=== PATIENT | female | born 1955 | race Native Hawaiian/Other Pacific Islander ===

== ENCOUNTER 2020-03-30 15:02 | Emergency (ER) | payer OTHER ==
[~2020-03-30] VITALS: Ht 170.2 cm; Wt 56.7 kg
[2020-03-30 16:05] LABS: PLATELET COUNT 148 K/uL (152-353)
[2020-03-30 16:15] LABS: POTASSIUM 3.4 mmol/L (3.6-5.2)
[2020-03-31 14:18] VITALS: BP 127/71; TEMP 97.6
== END 2020-03-31 14:20 | disposition home or self-care (01) ==
LOC: ED 15:02
PROVIDERS: Family Medicine
DX: F10.239 Alcohol dependence with withdrawal, unspecified (principal)
CPT/HCPCS: 36415; 80053; 80320; 81000; 85027; 99283

== ENCOUNTER 2020-04-11 07:16 | Emergency (ER) | payer OTHER ==
[~2020-04-11] VITALS: Ht 170.2 cm; Wt 59.0 kg
[2020-04-11 07:16] VITALS: BP 149/93; TEMP 98.9
== END 2020-04-11 08:15 | disposition home or self-care (01) ==
LOC: ED 07:19
PROC: 2W3DX1Z Immobilization of Left Lower Arm using Splint (ICD-10-PCS; principal; 2020-04-11)
DX: S52.592A Other fractures of lower end of left radius, initial encounter for closed fracture (principal); W18.39XA Other fall on same level, initial encounter; Y92.89 Other specified places as the place of occurrence of the external cause
CPT/HCPCS: 96372; 99283; J1885

== ENCOUNTER 2020-04-15 15:53 | Emergency (ER) | payer OTHER ==
[~2020-04-15] VITALS: Ht 170.2 cm; Wt 59.0 kg
[2020-04-15 15:53] VITALS: BP 161/88; TEMP 98.9
[2020-04-15] MEDS ORDERED: KETO10TA34 PO (16:00)
== END 2020-04-15 16:37 | disposition home or self-care (01) ==
LOC: ED 15:56
DX: S62.102A Fracture of unspecified carpal bone, left wrist, initial encounter for closed fracture (principal)
CPT/HCPCS: 96372; 99283; J1885

== ENCOUNTER 2020-05-17 08:57 | Emergency (ER) | payer OTHER ==
[~2020-05-17] VITALS: Ht 170.2 cm; Wt 59.0 kg
[2020-05-17 08:57] VITALS: TEMP 98.5
[~2020-05-17 08:57] MED LIST: KETO10TA34 PO
[2020-05-17 09:42] LABS: POTASSIUM 3.3 mmol/L (3.6-5.2); SODIUM 140 mmol/L (136-145)
[2020-05-17 09:53] LABS: PLATELET COUNT 227 K/uL (152-353)
[2020-05-17 13:00] VITALS: BP 144/89
== END 2020-05-17 13:05 | disposition home or self-care (01) ==
LOC: ED 09:00
PROVIDERS: Family Medicine
DX: E87.6 Hypokalemia (principal); F41.8 Other specified anxiety disorders; I10 Essential (primary) hypertension; F17.210 Nicotine dependence, cigarettes, uncomplicated
CPT/HCPCS: 80053; 80307; 80320; 80329; 81000; 84484; 85027; 93005; 99284

== ENCOUNTER 2020-07-21 20:11 | Emergency (ER) | payer OTHER ==
[~2020-07-21] VITALS: Ht 170.2 cm; Wt 59.0 kg
[2020-07-21 20:39] LABS: PLATELET COUNT 179 K/uL (152-353)
[2020-07-21 20:40] LABS: POTASSIUM 3.8 mmol/L (3.6-5.2)
[2020-07-21 22:42] VITALS: BP 136/69; TEMP 97.9
== END 2020-07-21 22:42 | disposition home or self-care (01) ==
LOC: ED 20:11
PROVIDERS: Family Medicine
DX: A08.39 Other viral enteritis (principal)
CPT/HCPCS: 36415; 80053; 82150; 83605; 83690; 85027; 96360; 96361; 96375; 99284; J2405

== ENCOUNTER 2020-10-24 09:37 | Day surgery (SDC) | payer OTHER ==
[2020-10-21 11:25] LABS: POTASSIUM 4.5 mmol/L (3.6-5.2)
[2020-10-21 11:51] LABS: PLATELET COUNT 406 K/uL (152-353)
== END 2020-10-24 14:00 | disposition home or self-care (01) ==
LOC: OR 09:37
PROVIDERS: ATTEND Student in an Organized Health Care Education/Training Program
PROC: 0DBP8ZZ Excision of Rectum, Via Natural or Artificial Opening Endoscopic (ICD-10-PCS; principal; 2020-10-24)
PROC: 0DBN8ZZ Excision of Sigmoid Colon, Via Natural or Artificial Opening Endoscopic (ICD-10-PCS; 2020-10-24)
DX: K63.5 Polyp of colon (principal); K62.1 Rectal polyp; Z12.11 Encounter for screening for malignant neoplasm of colon
CPT/HCPCS: 80053; 85027; J2001; J2704

== ENCOUNTER 2020-11-01 10:53 | Outpatient (CLI) | payer OTHER | END 2020-11-01 21:17 | disposition home or self-care (01) | LOC: RAD 10:53 | PROVIDERS: ATTEND Nurse Practitioner Family | DX: R51.9 Headache, unspecified (principal); F17.210 Nicotine dependence, cigarettes, uncomplicated; Z12.31 Encounter for screening mammogram for malignant neoplasm of breast; Z13.820 Encounter for screening for osteoporosis; N95.8 Other specified menopausal and perimenopausal disorders | CPT/HCPCS: G0297-TC ==

== ENCOUNTER 2020-11-01 11:22 | Outpatient (CLI) | payer OTHER | END 2020-11-01 21:32 | disposition home or self-care (01) | LOC: INF 11:22 | PROVIDERS: ATTEND Internal Medicine | DX: Z23 Encounter for immunization (principal) | CPT/HCPCS: 96372 ==

== ENCOUNTER 2020-11-22 15:28 | Outpatient (CLI) | payer OTHER | END 2020-11-22 21:50 | disposition home or self-care (01) | LOC: CT 15:28 | PROVIDERS: ATTEND Nurse Practitioner Family | DX: R74.8 Abnormal levels of other serum enzymes (principal); R10.12 Left upper quadrant pain; R10.11 Right upper quadrant pain | CPT/HCPCS: Q9963 ==

== ENCOUNTER 2020-12-02 13:03 | Outpatient (CLI) | payer OTHER | END 2020-12-02 19:24 | disposition home or self-care (01) | LOC: MRI 13:03 | PROVIDERS: ATTEND Nurse Practitioner Family | DX: R51.9 Headache, unspecified (principal) ==

== ENCOUNTER 2020-12-03 09:43 | Outpatient (CLI) | payer OTHER | END 2020-12-03 19:11 | disposition home or self-care (01) | LOC: INF | PROVIDERS: ATTEND Internal Medicine | DX: Z23 Encounter for immunization (principal) | CPT/HCPCS: 96372 ==

== ENCOUNTER 2020-12-31 09:52 | Outpatient (CLI) | payer OTHER | END 2020-12-31 19:46 | disposition home or self-care (01) | LOC: MRI 09:52 | PROVIDERS: ATTEND Internal Medicine Gastroenterology | DX: K83.8 Other specified diseases of biliary tract (principal) | CPT/HCPCS: A9576 ==

== ENCOUNTER 2021-02-05 12:27 | Emergency (ER) | payer OTHER ==
[~2021-02-05] VITALS: Ht 152.4 cm; Wt 59.0 kg
[2021-02-05 12:30] VITALS: TEMP 98
[2021-02-05 13:10] LABS: PLATELET COUNT 297 K/uL (152-353)
[2021-02-05 13:22] LABS: POTASSIUM 2.9 mmol/L (3.6-5.2); SODIUM 140 mmol/L (136-145)
[2021-02-05 13:31] LABS: PARTIAL THROMBOPLASTIN TIME 22.8 SECONDS (24.5-33.6)
[2021-02-05 15:55] VITALS: BP 139/79
== END 2021-02-05 15:55 | disposition home or self-care (01) ==
LOC: ED 12:27
PROVIDERS: Family Medicine
DX: K21.9 Gastro-esophageal reflux disease without esophagitis (principal); E87.6 Hypokalemia; E86.0 Dehydration; R06.02 Shortness of breath
CPT/HCPCS: 80053; 82550; 83880; 84484; 85027; 85610; 85730; 93005; 96365; 96375; 99284; J0696; J1885

== ENCOUNTER 2021-03-06 21:09 | Emergency (ER) | payer OTHER ==
[~2021-03-06] VITALS: Ht 170.2 cm; Wt 56.7 kg
[2021-03-06 21:45] LABS: PLATELET COUNT 392 K/uL (152-353)
[2021-03-06 21:54] LABS: POTASSIUM 3.2 mmol/L (3.6-5.2); SODIUM 142 mmol/L (136-145)
[2021-03-06 22:35] VITALS: BP 148/91; TEMP 98.9
== END 2021-03-06 22:35 | disposition home or self-care (01) ==
LOC: ED 21:09
PROVIDERS: Family Medicine
DX: R07.89 Other chest pain (principal); K21.9 Gastro-esophageal reflux disease without esophagitis; F10.129 Alcohol abuse with intoxication, unspecified; Y90.8 Blood alcohol level of 240 mg/100 ml or more
CPT/HCPCS: 36415; 80053; 80307; 80320; 81000; 82553; 84484; 85027; 93005; 99283

== ENCOUNTER 2021-06-10 09:00 | Emergency (ER) | payer OTHER ==
[~2021-06-10] VITALS: Ht 170.2 cm; Wt 54.4 kg
[2021-06-10 09:30] LABS: PLATELET COUNT 281 K/uL (152-353)
[2021-06-10 09:34] LABS: POTASSIUM 3.1 mmol/L (3.6-5.2)
[2021-06-10 11:27] VITALS: BP 132/62; TEMP 98.9
== END 2021-06-10 11:27 | disposition home or self-care (01) ==
LOC: ED 09:00
PROVIDERS: Hospitalist
DX: R19.7 Diarrhea, unspecified (principal); R11.2 Nausea with vomiting, unspecified; K80.20 Calculus of gallbladder without cholecystitis without obstruction; Z20.822 Contact with and (suspected) exposure to COVID-19
CPT/HCPCS: 36415; 80053; 80320; 83690; 85027; 87635; 96360; 96374; 99284; J2405; U0003